=== PATIENT | female | born 1985 | race Caucasian/White ===

== ENCOUNTER 2022-10-11 12:45 | Emergency (ER) | payer OTHER ==
[2022-10-11 13:02] VITALS: BP 138/96; PULSE 86; RESP 16; TEMP 98.4; BMI 34.1
== END 2022-10-11 13:45 | disposition home or self-care (01) ==
LOC: FER 12:45
PROC: 0HQFXZZ Repair Right Hand Skin, External Approach (ICD-10-PCS; principal; 2022-10-11)
DX: S61.214A Laceration without foreign body of right ring finger without damage to nail, initial encounter (principal); W26.0XXA Contact with knife, initial encounter
CPT/HCPCS: 99283-25